=== PATIENT | female | born 2000 | race Asian ===

== ENCOUNTER 2022-07-14 09:42 | Emergency (ER) | payer OTHER, SELFPAY ==
[2022-07-14 10:05] VITALS: BP 103/75; PULSE 66; RESP 16; TEMP 36.9; O2SAT 96; BMI 19.9
[2022-07-14 11:15] LABS: HCG Qualitative* Negative (Negative)
--- NOTE | 2022-07-14 11:24 | ED_ITS ---
HPI - General Adult General Time Seen by Provider: 11:24 Date Seen: 07/14/22 Chief complaint: Abdominal Pain Stated complaint: Abdominal pain Time Seen by Provider: 07/14/22 11:09 Source: patient Mode of arrival: ambulatory Limitations: no limitations History of Present Illness HPI narrative: Patient is a very pleasant 21-year-old female from the [facility] area is attending [facility], she is here with her significant other. Both very delightful young people. Areli has sudden onset of sharp pain this morning after sexual intercourse, subsequently she has been fine now, her symptoms have resolved this lasted for a short period of time., she reports was quite in test intense in her left lateral abdomen. Now it is resolved. They did report the ate sushi last night but she has not had diarrhea or vomiting and she feels better now. She has been very healthy no chronic health problems. A urine test was ordered on triage [facility] is negative. No no chest pain, no COVID symptoms, no fever chills cough dysuria Related Data Home Medications Medication Instructions Recorded Confirmed No Known Home Medications 07/14/22 07/14/22 Allergies Allergy/AdvReac Type Severity Reaction Status Date / Time No Known Drug Allergies Allergy Verified 07/14/22 10:05 Review of Systems Status of ROS: Reports: 6 or more systems reviewed and unremarkable except as noted in History and below PFSH PFS Social History Smoking Status: Never smoker Second hand tobacco smoke exposure: No How often do you have a drink containing alcohol: never AUDIT-C Alcohol total score: 0 Non-prescribed substance use: denies use service: No Exam Narrative: Exam Narrative: Objective: Patient is alert oriented pleasant, no distress, has no symptoms Vital signs unremarkable afebrile Abdomen is soft bowel sounds normoactive, benign, no peritonitis, no guarding. No palpable masses. No suprapubic pain, no subjective complaint of pelvic pain Const: Vital Signs, click to edit/add: Vital Signs - 24 hr 07/14/22 10:05 07/14/22 11:34 Temperature 98.5 F Pulse Rate [Pulse Oximeter] 66 80 Respiratory Rate 16 75 H Blood Pressure [Le ft Upper Arm] 103/75 107/68 Pulse Oximetry 96 98 Oxygen Delivery Me thod Room Air Course Vital Signs Vital signs: Initial Vital Signs Temperature 98.5 F 07/14/22 10:05 Temperature Source Temporal Artery Scan 07/14/22 10:05 Pulse Rate 66 07/14/22 10:05 Pulse Rhythm 07/14/22 10:05 Pulse Strength 3+ Normal 07/14/22 10:05 Respiratory Rate 16 07/14/22 10:05 Blood Pressure 103/75 07/14/22 10:05 Blood Pressure Mean 84 07/14/22 10:05 Blood Pressure Position Sitting 07/14/22 10:05 Pulse Oximetry 96 07/14/22 10:05 Oxygen Delivery Method 07/14/22 10:05 Vital Signs Temperature 98.5 F 07/14/22 10:05 Pulse Rate 66 07/14/22 10:05 Respiratory Rate 16 07/14/22 10:05 Blood Pressure 103/75 07/14/22 10:05 Pulse Oximetry 96 07/14/22 10:05 Oxygen Delivery Method 07/14/22 10:05 Temperature 98.5 F 07/14/22 10:05 Pulse Rate 80 07/14/22 11:34 Respiratory Rate 75 H 07/14/22 11:34 Blood Pressure 107/68 07/14/22 11:34 Pulse Oximetry 98 07/14/22 11:34 Oxygen Delivery Method 07/14/22 10:05 Medical Decision Making MDM Narrative Medical decision making narrative: Patient had some sharp left-sided abdominal pain post intercourse, could have ruptured ovarian cyst, could have some intestinal colic from activity. At this point however she is not nauseated not vomiting, no abdominal pain, no dysuria, no constipation or diarrhea. No fevers. I think at this point we can allow her to go home without further workup, and she and her significant other in agreement with this, return if recurrent symptoms or problems. Light activity recommended, light diet, return as mention. Lab Data Labs: Lab Results 07/14/22 Range/Units 10:59 HCG, Qual Negative (Negative) Urine Color Yellow (Yellow) Urine Appearance Clear (Clear) Urine pH 7.5 (5.0-8.5) Ur Specific [place] 1.020 (1.000-1.030) Urine Protein Negative (Negative) Urine Glucose (UA) Negative (Negative) Urine Ketones Negative (Negative) Urine Blood Negative (Negative) Urine Nitrite Negative (Negative) Urine Bilirubin Negative (Negative) Urine Urobilinogen 0.2 (0.2-1.0) Ur Leukocyte Esterase Trace A (Negative) Urine RBC 0-2 (0-2) Urine WBC 0-2 (0-5) Ur Squamous Epith Cells None (None-Few) Urine Bacteria None (None) Discharge Plan Discharge Clinical Impression: Resolved abdominal pain Patient Disposition: Home w/ Parent or Adult Condition: Improved Additional Instructions: Light activity, light diet, return if problems or recurrence. Update primary care doctor in the next couple of days if recurrent symptoms. Return to ED if unable to tolerate or other issues or recurrence of pain. Activity Level: Light activity Discharge Diet: Full Liquid Diet Detail: Full liquid diet to start an advanced diet as tolerated Prescriptions: No Action No Known Home Medications Stand Alone Forms: [employer] Info Instructions
[2022-07-14 11:34] VITALS: BP 107/68; PULSE 80; RESP 75; O2SAT 98
--- NOTE | 2022-07-14 11:40 | PC.NURSE ---
Patient discharged home. All questions answered. Left via ambulatory with boyfriend.
[2022-07-14 16:50] LABS: Appearance Urine Clear (Clear); Bilirubin Urine Negative (Negative); Blood Urine Negative (Negative); Color Urine Yellow (Yellow); Glucose Urine Negative (Negative); Ketones Urine Negative (Negative); Leukocyte Esterase Urine Trace (Negative); Nitrite Urine Negative (Negative); Protein Urine Negative (Negative); Urobilinogen Urine 0.2 (0.2-1.0); pH Urine 7.5 (5.0-8.5)
[2022-07-14 16:58] LABS: RBC Urine 0-2 (0-2); WBC Urine 0-2 (0-5)
== END 2022-07-14 11:41 | disposition home or self-care (01) ==
PROVIDERS: Emergency Provider Family Medicine
DX: R10.9 Unspecified abdominal pain (principal)
CPT/HCPCS: 81001; 84703; 99283